=== PATIENT | female | born 1995 | race African-American/Black ===

== ENCOUNTER 2017-08-13 15:56 | Emergency (ER) | payer OTHER ==
--- NOTE | 2017-08-13 16:10 | PDOC ---
Rapid Medical Evaluation Time Seen by Provider: 08/13/17 16:07 Medical Evaluation: Allergies Allergy/AdvReac Type Severity Reaction Status Date / Time No Known Drug Allergies Allergy Verified 08/23/15 11:55 I have performed a brief in-person evaluation of this patient. 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 decreased tone right hand I have ordered the following: labs, electrolytes The patient will proceed to the ED for further evaluation. Discharge Disposition - Diagnosis Numbness of right hand - Referrals - Patient Instructions - Post Discharge Activity
[2017-08-13 16:16] VITALS: BP 131/75; PULSE 91; TEMP 98; BMI 19.3
[2017-08-13 16:36] LABS: BASO % 1.1 % (0-2.0); EOS % 1.7 % (0-4.5); HEMATOCRIT 33.8 % (32.4-45.2); HEMOGLOBIN 11.3 GM/dL (10.7-15.3); LYMPH % 55.2 % (8-40); MCH 25.2 pg (25.7-33.7); MCHC 33.5 g/dl (32.0-36.0); MEAN CELL VOLUME 75.1 fl (80-96); MEAN PLT VOLUME 8.4 fl (7.5-11.1); MONO % 8.1 % (3.8-10.2); NEUT % 33.9 % (42.8-82.8); PLATELET COUNT 292 K/MM3 (134-434); RDW 17.1 % (11.6-15.6); WHITE BLOOD COUNT 4.5 K/mm3 (4.0-10.0)
[2017-08-13 16:37] LABS: HCG,QUALITATIVE URINE NEGATIVE; URINE APPEARANCE CLEAR; URINE BILIRUBIN NEGATIVE (<2.0 mg/dL); URINE COLOR YELLOW; URINE GLUCOSE (UA) NEGATIVE (NEGATIVE); URINE KETONE NEGATIVE (NEGATIVE); URINE LEUK ESTERASE TRACE (NEGATIVE); URINE NITRITE NEGATIVE (NEGATIVE); URINE UROBILINOGEN NEGATIVE mg/dL (0.2-1.0)
[2017-08-13 16:41] LABS: URINE PROTEIN 1+ (NEGATIVE)
[2017-08-13 16:43] LABS: EPI CELLS RARE /HPF (FEW); URINE MUCUS MANY
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
[2017-08-13 17:04] LABS: CHLORIDE 109 mmol/L (98-107); SODIUM 140 mmol/L (136-145)
[2017-08-13 18:52] LABS: ALBUMIN 4.1 g/dl (3.4-5.0); ALK PHOS 53 U/L (45-117); ANION GAP 7 (8-16); BILIRUBIN,TOTAL 0.4 mg/dL (0.2-1.0); BLOOD UREA NITROGEN 9 mg/dL (7-18); CO2 24 mmol/L (21-32); CREATININE 0.8 mg/dL (0.55-1.02); GLUCOSE,RANDOM 88 mg/dL (74-106); SGOT/AST 15 U/L (15-37); SGPT/ALT 13 U/L (12-78)
[2017-08-13 19:21] LABS: TOT PROT 8.2 g/dl (6.4-8.2)
== END 2017-08-13 18:30 | disposition home or self-care (01) ==
LOC: JERFT 15:56
DX: M21.331 Wrist drop, right wrist (principal)
CPT/HCPCS: 36415; 80053; 81003; 81015; 83735; 84703; 85025; 99281-25

== ENCOUNTER 2019-03-21 18:39 | Emergency (ER) | payer OTHER ==
[2019-03-21 18:44] VITALS: BP 106/72; PULSE 77; TEMP 98
[2019-03-21] MEDS ORDERED: IBUPROFEN 600 MG TABLET (FP) PO ONE ×2 (18:45→19:43)
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
== END 2019-03-21 20:03 | disposition home or self-care (01) ==
LOC: JERFT 18:39
DX: M54.5 Low back pain (principal); M25.561 Pain in right knee; V43.62XA Car passenger injured in collision with other type car in traffic accident, initial encounter; Y92.411 Interstate highway as the place of occurrence of the external cause; Y93.89 Activity, other specified; Y99.8 Other external cause status
CPT/HCPCS: 99281-25

== ENCOUNTER 2023-08-24 17:38 | Emergency (ER) | payer OTHER | END 2023-08-24 18:36 | disposition left against medical advice (07) | LOC: JERFT 17:38 | DX: Z04.1 Encounter for examination and observation following transport accident (principal); V89.2XXA Person injured in unspecified motor-vehicle accident, traffic, initial encounter; Y92.410 Unspecified street and highway as the place of occurrence of the external cause | CPT/HCPCS: 99281-25 ==

== ENCOUNTER 2023-08-29 10:14 | Emergency (ER) | payer OTHER ==
[2023-08-29 10:19] VITALS: BP 110/75; PULSE 63; RESP 18; TEMP 97.7; BMI 19.3
[2023-08-29] MEDS ORDERED: ACETAMINOPHEN 500 MG TABLET (FP) ONE (10:51)
[2023-08-29] MEDS: ACETAMINOPHEN 500 MG TABLET (FP) PO ONE (10:57)
== END 2023-08-29 11:33 | disposition home or self-care (01) ==
LOC: JER 10:14 → JERFT 10:14
DX: M79.645 Pain in left finger(s) (principal)
CPT/HCPCS: 73130-TC-LT-FY; 99283-25